=== PATIENT | male | born 1960 | race Caucasian/White ===

== ENCOUNTER 2017-11-21 13:02 | Outpatient (CLI) | payer OTHER ==
--- NOTE | 2017-11-21 17:46 | CT ---
NONCONTRAST CT LUMBAR SPINE: Date: 11-21-17 History: Polyneuropathy. Patient states that his legs give way and he collapses while standing. Sympt oms have been present for 6 months. History of prior lumbar surgery. FINDINGS: There is a dorsum column stimulator device noted in place with leads apparently entering at the T9-10 level as well as a lead entering at the T12-L1 level with leads extending from the T9-10 level to th e T12-L1 level. Post-surgical change related to posterior fusion are present involving the lower lumbar spine. There are bipedicular screws in the L3, L4, and L5 vertebral bodies transfixed by posterior rods. Intradisc al prosthesis is seen at the L3-4 level. There appears to be effusion of the T10 and T11 vertebral bodies with prominent bridging osteophytes anteriorly extending from the T9 to L1 vertebral bodies. The vertebral body heights are within normal limits. No fracture is seen on this examination. There i s trace retrolisthesis of L2 on L3. L1-2: There is vacuum phenomenon of intervertebral disc with loss of intervertebral disc height. Ther e is a disc osteophyte complex present with calcification of the posterior margin of the disc. There are facet hypertrophic changes at this level and ligamentous thickening. Findings result in moderate to severe narrowing of the central spinal canal. There is moderate left neural foraminal narrowing. T here is only mild encroachment on the right neural foramen at this level. L2-3: There is loss of intervertebral disc height with vacuum phenomenon in the intervertebral disc. There is disc osteophyte complex present with calcification of the posterior margin of the interverte bral disc. There are prominent facet hypertrophic changes and ligamentous thickening. There is severe narrowing of the central spinal canal. Calcification along the posterior disc margin may be related to calcification of the posterior longitudinal ligament. This finding is also similar to the L1-2 lev el and may again be related to calcification of the margins of the intervertebral disc or calcificati on of the posterior longitudinal ligament at these levels. There is mild bilateral neural foraminal n arrowing at this level. L3-4: Laminectomy defect is seen posteriorly. There is prominent artifact to this region due to not o nly the spinal hardware but the power pack for the dorsum column stimulator device, limiting evaluati on. However, there is no significant narrowing of the central spinal canal. The neural foramina also appear patent at this level. L4-5: Loss of intervertebral disc height. There is laminectomy defect seen posteriorly with prominent facet hypertrophic changes. There is only slight mass effect on the right posterolateral aspect of t he thecal sac due to the facet and degenerative changes. There is mild bilateral neural foraminal duong rowing due to bony encroachment. L5-S1: Laminectomy defect is seen posteriorly. There is a mild disc osteophyte complex with suggestio n of uncinate process hypertrophy on the right. This does encroach on and may potentially contact the traversing right S1 nerve root but does not displace and deform the nerve root. There is mild bilate ral neural foraminal narrowing. There is fusion of the lumbosacral junction. A punctate nonobstructing calculus is seen in the midportion left kidney with subcentimeter too small to characterize hypodense lesion seen in the medial aspect of the left kidney. Mild vascular calcifi cation is seen in the abdominal aorta and iliac arteries. IMPRESSION: 1. Post-surgical changes of the lumbar spine related to posterior fusion of L3 through S1 as describe d above. 2. Trace retrolisthesis of L2 on L3 with prominent degenerative changes at this level. There is promi nent facet hypertrophic changes with disc osteophyte complex and calcification along the posterior ma rgin of the intervertebral disc. Severe narrowing of the central spinal canal is present at this leve l with narrowing of the lateral recesses as well. There is moderate bilateral neural foraminal narrow ing. 3. Moderate narrowing of the central spinal canal at the L1-2 level, again related to disc osteophyte complex and calcification along the posterior margin of the intervertebral disc. There is moderate t o severe left and mild right sided neural foraminal narrowing. 4. No evidence of a fracture. 5. Fusion of the lower thoracic vertebral bodies. 6. Dorsal column stimulator device in place as described above. 7. Heterotopic ossification in the soft tissues posterior to the L4-5 level. 8. Atherosclerotic vascular calcification. 9. Non obstructing left renal calculus. POS: [facility]
== END 2017-11-21 13:03 | disposition home or self-care (01) ==
LOC: SCSCT 13:02
PROVIDERS: ATTEND Psychiatry & Neurology Neurology
DX: G63 Polyneuropathy in diseases classified elsewhere (principal); M47.896 Other spondylosis, lumbar region; M48.061 Spinal stenosis, lumbar region without neurogenic claudication; M99.83 Other biomechanical lesions of lumbar region; M43.16 Spondylolisthesis, lumbar region; M25.78 Osteophyte, vertebrae; I25.10 Atherosclerotic heart disease of native coronary artery without angina pectoris; N20.0 Calculus of kidney; Z98.1 Arthrodesis status; Z97.8 Presence of other specified devices
CPT/HCPCS: 72131

== ENCOUNTER 2017-11-21 16:00 | Outpatient (CLI) | payer OTHER | END 2017-11-21 16:01 | disposition home or self-care (01) | LOC: SLEEPLAB 16:00 | PROVIDERS: ATTEND Otolaryngology Plastic Surgery within the Head & Neck | DX: G47.33 Obstructive sleep apnea (adult) (pediatric) (principal); Z68.33 Body mass index [BMI] 33.0-33.9, adult | CPT/HCPCS: 95806 ==

== ENCOUNTER 2017-12-09 10:29 | Outpatient (CLI) | payer OTHER ==
--- NOTE | 2017-12-09 12:25 | CT ---
CT CERVICAL SPINE: INDICATIONS: Prior fusion. Neck pain. Broken screw at C6, according to history. TECHNIQUE: Multiple axial tomograms obtained through the cervical spine with multiplanar reconstruction. FINDINGS: Prior anterior fusion procedure noted. Anterior plate and screws seen in place, transfixing C4, C5, and C6. There are interbody implants and partial fusion at these levels. Prominent hypertrophic spo ndylitic changes are seen posteriorly. There is partial ossification of the posterior longitudinal l igament at C3-C4. There are prominent anterior osteophytes. The anterior plate and screws appear adequately positioned at C4 and C5. The anterior plate is adher ent at C6; however, the screws transfixing this plate at C6 show fractures in the C6 vertebra. The h rajiv of both these screws show slight retraction from the plate, more prominent on the right. At C2-C3, there is a small central disk protrusion, best appreciated on soft tissue windows, which im pinges upon and mildly flattens the anterior cord. The foramina are patent. At C3-C4, posterior hypertrophic changes are present with posterior spondylosis and partial ossificat ion of the posterior longitudinal ligament. There appears to be associated disk bulge and spondylosi s. These changes at C3-C4 compress the cord, resulting in moderate to severe cervical canal stenosis . There is right foraminal stenosis secondary to uncinate hypertrophy at this level. This ossified posterior longitudinal ligament continues along the posterior border of the C4 vertebra and compresses the cord. There are bony spondylitic changes at C4-C5, which compression the cord. There is severe compression of the cord at C4-C5, consistent with severe cervical canal stenosis. Th ere is severe left foraminal stenosis secondary to facet and uncinate hypertrophy and moderate right foraminal stenosis at C4-C5. Large osteophytes are seen at C5-C6, posteriorly, compressing the cord, resulting in moderate to tonya re cervical canal stenosis. Bilateral foraminal stenosis secondary to hypertrophic change. C6-C7: Mild disk bulge with spondylosis with mild hypertrophic change. No significant cervical tru l or foraminal stenosis. IMPRESSION: 1. There are prominent degenerative changes of the cervical spine with postoperative changes at C4, C5, and C6, as described above. 2. Prominent posterior bony spondylitic change, in conjunction with a partial ossification of the po sterior longitudinal ligament, resulting in moderate to severe cervical canal stenosis at C3-C4, C4-C 5, and C5-C6, with compression of the cord and foraminal stenosis at these levels, a described. POS: [facility]
== END 2017-12-09 10:30 | disposition home or self-care (01) ==
LOC: SCSCT 10:29
DX: M48.02 Spinal stenosis, cervical region (principal); M47.892 Other spondylosis, cervical region; M99.81 Other biomechanical lesions of cervical region; G95.20 Unspecified cord compression
CPT/HCPCS: 72125

== ENCOUNTER 2018-01-06 07:11 | Outpatient (CLI) | payer OTHER ==
[2018-01-06 08:24] VITALS: BP 121/89; TEMP 97.4
[2018-01-06 08:25] VITALS: BMI 33.1
--- NOTE | 2018-01-06 10:18 | RAD ---
LUMBAR SPINE 4 VIEWS: History Low back pain. Prior surgery. FINDINGS: There are 5 lumbar-type vertebrae. Bilateral pedicle screws and vertical fixators are in place at th e L3-4-5-S1 levels without perihardware lucency. Facet screws at the L4-5 level. Interbody fusion m aterial markers at the L2-3 level within the confines of the disk space. Other pedicles are intact. Prominent osteophytosis. Disk space narrowing and minimal degenerative retrolisthesis at the L1-2 a nd L2-3 levels without abnormal translational motion upon flexion or extension. Dorsal column stimul ator partially visualized. IMPRESSION: Postoperative and degenerative changes lumbar spine without acute osseous abnormalities demonstrated. POS: [facility]
--- NOTE | 2018-01-06 10:24 | RAD ---
CERVICAL SPINE SERIES: HISTORY: Neck pain. FINDINGS: AP, lateral, open mouth odontoid, flexion, and extension views of the cervical spine were obtained. Five views cervical spine demonstrate ACDF with fusion of the C4, 5, and 6 vertebrae. Anterior plate and screws are in place. One of the C6 screws appears to have fractured and has migrated anteriorly just posterior to the proximal esophagus. POS: [facility]
--- NOTE | 2018-01-06 11:44 | RAD ---
CERVICAL AND THORACIC AND LUMBAR SPINE MYELOGRAM: HISTORY: Previous fusion. Evaluate for spinal stenosis. COMPARISON: None. EXOPSURE: 97517.2 mGy*^m2. 7.1 minutes. FINDINGS: Successful lumbar myelogram. Total of 10 cc of Isovue contrast was administered intrathecally. The patient tolerated the procedure well. No immediate or postprocedure complications. Two view interceptor operator of the thoracic spine demonstrates extensive degenerative change with osteophyte forma tion. Dorsal column stimulator wires are noted and terminate in the distal thoracic spine. Cervical fusion hardware is noted. TECHNIQUE: Consent was obtained to perform a lumbar puncture for intrathecal contrast administration. The patie nt's back was evaluated. The L5-S1 level is deemed appropriate. The skin was prepped and draped in sterile fashion. 1% Lidocaine, buffered with sodium bicarbonate, was used for local anesthesia. Att empt was made to access the central canal at L5-S1, which was unsuccessful. Therefore, the patient w as re-prepped and draped in a sterile fashion. Additional Lidocaine was administered and attempt was made t the L2-L3 level, which was also unsuccessful. Therefore, the patient was prepped and draped in sterile fashion once again and additional Lidocaine was given. The final attempt was made at the L5-S1 level which was successful. Contrast was able to be administered into the thecal sac. There a re no immediate post procedure complications. IMPRESSION: Successful lumbar puncture for intrathecal contrast administration. POS: [facility]
[2018-01-06] MEDS ORDERED: Iopamidol-M 300 61% 15 ML VIAL ONE (12:13)
--- NOTE | 2018-01-06 12:20 | CT ---
CT CERVICAL SPINE: HISTORY: Status post myelogram. COMPARISON: 12/09/2017 TECHNIQUE: A post myelogram CT of the cervical spine is performed in the axial plane. Reformatted images are shoemaker bmitted for interpretation. FINDINGS: There is an anterior fusion plate with a transvertebral body screw at C4, C5, and C6. The right and left screw at C6 are retracted, and the left screw is fractured. Disk prostheses at C4-C5 and at C5- C6 are noted. Cervical spine vertebral body height is maintained. No fracture or malalignment. The visualized sof t tissue neck structures, the upper mediastinum, and the lung apices are unremarkable. C2-C3: Central disk bulge abuts the thecal sac. Mild central canal stenosis. The neural foramina a re patent. C3-C4: Broad-based disk osteophyte complex. There is mass effect upon the left hemicord. Moderate central canal stenosis. Mild left foraminal narrowing. C4-C5: Broad-based osteophyte ridge with severe central canal stenosis. Moderate right and severe l eft foraminal narrowing. C5-C6: Central disk osteophyte complex abuts the thecal sac. Mild to moderate central canal stenosi s. Moderate bilateral foraminal narrowing. C6-C7: No high-grade central canal stenosis or high-grade foraminal narrowing. C7-T1: No high-grade central canal stenosis or high-grade foraminal narrowing. IMPRESSION: 1. Fractured and retracted vertebral body screws at C6. 2. Significant central canal stenosis at multiple levels, as described above. There is severe centr al canal stenosis at C5-C6. Moderate central canal stenosis at C4-C5. POS: [facility]
--- NOTE | 2018-01-06 12:25 | CT ---
POST MYELOGRAM THORACIC SPINE CT: HISTORY: Thoracic spine pain. COMPARISON: None. FINDINGS: The visualized mediastinal structures are unremarkable. The visualized upper solid organs have appro priate attenuation. The visualized lung parenchyma demonstrate dependent atelectatic changes. The trachea and central br onchi are patent. The thoracic cord has an overall normal size. No evidence of cord expansion. The conus medullaris t erminates at the mid L1 to lower L1 level. There are two separate dorsal column stimulators, which have leads that terminate between T9 and T12. Throughout the thoracic spine, there is no evidence of high-grade foraminal stenosis. T6-T7: Central/right paracentral risk bulge. Mild central canal stenosis. T7-T8: Central/left paracentral disk bulge with deformity at the left aspect of the cord. Mild to m oderate central canal stenosis. T8-T9: Small right paracentral osteophyte with mild central canal stenosis. IMPRESSION: Degenerative changes of the mid thoracic spine, as above. There is central canal stenosis at T6-T7 a nd T7-T8 and, to a lesser extent, at T8-T9. POS: [facility]
--- NOTE | 2018-01-06 13:04 | CT ---
POST MYELOGRAM LUMBAR SPINE CT: COMPARISON: 11/21/17. HISTORY: Spinal stenosis. TECHNIQUE: Post myelogram lumbar spine CT is performed in the axial plane. Reformatted images are submitted for interpretation. FINDINGS: There are bilateral transpedicular screws at L3, L4, L5, and S1. There is associated posterior fusio n hardware. No evidence of perihardware lucency. Extensive bone graft material from L3 through S1. Disk prosthesis at L3-L4. Vacuum disk phenomenon at L1-L2 and L2-L3. Partially visualized dorsal c olumn stimulators. Symmetric attenuation of the psoas muscles. Visualized solid organs are unremarkable. Conus medullaris is at the inferior aspect of L1. Lumbar spine vertebral body height is maintained. No fracture or malalignment. Left hemilaminectomy defect at L5-S1. Posterior decompressive laminectomy at L4-L5, L3-L4. Partially visualized dorsal column stimulator is in the distal thoracic spine. T12-L1: No high-grade central canal stenosis or high-grade foraminal narrowing. L1-L2: Vacuum disk phenomenon. Broad-based disk-osteophyte complex, ligamentum flavum thickening, a nd facet hypertrophy result in mild central canal stenosis. Moderate bilateral neural foraminal narr owing. L2-L3: There is vacuum disk phenomenon. Broad-based disk bulge, ligamentum flavum thickening, and f acet hypertrophy result in severe central canal stenosis. There is 3 mm of retrolisthesis of L2 upon L3. Moderate bilateral neural foraminal narrowing. L3-L4: Posterior decompression. Disk prosthesis. No high-grade central canal stenosis. Bilaterall y, neural foramen are patent. L4-L5: Severe loss of disk space height. Posterior decompression. No high-grade central canal sten osis. Mild bilateral foraminal narrowing. L5-S1: Posterior decompression. No high-grade central canal stenosis. Neural foramina are mildly n arrowed. IMPRESSION: 1. Severe central canal stenosis at L2-L3. 2. Additional postoperative changes as described above. POS: [facility]
== END 2018-01-06 12:00 | disposition home or self-care (01) ==
LOC: RAD 07:11
PROVIDERS: ATTEND Surgery
DX: M51.16 Intervertebral disc disorders with radiculopathy, lumbar region (principal); M54.2 Cervicalgia; M48.061 Spinal stenosis, lumbar region without neurogenic claudication; M48.04 Spinal stenosis, thoracic region; M47.894 Other spondylosis, thoracic region; M48.02 Spinal stenosis, cervical region; Z98.1 Arthrodesis status
CPT/HCPCS: 62305; 72050; 72110; 72126; 72129; 72132

== ENCOUNTER 2018-06-07 14:25 | Outpatient (CLI) | payer OTHER ==
--- NOTE | 2018-06-07 16:39 | CT ---
CT CERVICAL SPINE NONCONTRAST: DATE: 06/07/18 HISTORY: 57-year-old male with cervical spondylosis. Status post surgery. Persistent cervicalgia. COMPARISON: 12/09/17. FINDINGS: Again noted are the anterior metallic plate and screws at C4, C5, and C6, and the small metallic karri ers for interbody grafts at the C4-5 and C5-6 disc spaces. The presence of streak artifact from the m etal makes it difficult to determine whether or not there are osseous bridges between the end plates at these levels. Again noted are the anterior bridging osteophytes protruding into the prevertebral s pace, flowing continuously from C6-7 through T2-3. It is presumed that such osteophytes have been sha mary ann off from the levels of ACDF mentioned above. This is consistent with DISH. Again noted are the ossified posterior longitudinal ligament, with interrupted segments, from C3-4 th rough upper C6, encroaching upon the anterior aspect of the spinal canal. Whereas previously there wa s extremely severe central spinal canal stenosis due to this OPLL, now the spinal canal has been wide corine by large, decompressive laminectomies, from C2-3 through C6-7. There are also new posterior eleme nt screws in the lateral masses, connected with vertical interlocking rods, from C3 down to T2. Align ment remains normal. The C2-3 and C3-4 disc spaces are maintained. There continues to be severe right neural foraminal stenosis at C3-4 due to asymmetrically moderate size right uncinate process osteoph ytes. IMPRESSION: 1. New, extensive decompressive laminectomy defects, relieving the previously severe central spinal canal stenosis, from C2-3 through C6-7. 2. New bilateral lateral mass posterior element screws from C4 through T2. 3. Ossified posterior longitudinal ligament. 4. Prior, old anterior cervical diskectomy and fusion at C4-5-6. 5. DISH (diffuse idiopathic skeletal hyperostosis). 6. Severe right neuroforaminal stenosis remains at C3-4. ABBE Meek POS: [facility]
--- NOTE | 2018-06-07 16:56 | CT ---
CT THORACIC SPINE WITHOUT CONTRAST: Date: 06/07/18 COMPARISON: Post myelogram thoracic spine CT dated 01/06/18. FINDINGS: Visualized mediastinal structures are unremarkable. Trachea and central bronchi are patent. Dependent atelectatic changes. Small bleb in the superior segment of the right lower lobe. Small calcified nod ule in the right lower lobe. No pleural effusion or pneumothorax. Visualized liver, kidneys, and spleen are unremarkable. Indeterminate hypodense mass emanating from t he proximal body of the pancreas, incompletely evaluated, measuring 2.1 cm. Redemonstration of incompletely evaluated fusion hardware along the anterior aspect of the distal cer vical spine. Interval placement of posterior fusion hardware in the distal cervical spine and upper t horacic spine. There are bilateral transpedicular screws at the T1 and T2 level. No perihardware luce ncy. Dorsal column stimulator is once again noted. Thoracic spine vertebral body height is maintained. There is no fracture. Extensive osteophyte format ion. Limited evaluation of the central spinal canal in terms of the distal cervical and upper thoracic spi ne secondary to beam attenuation hardware. Grossly, no high grade central canal stenosis or high grad e neural foraminal narrowing. IMPRESSION: 1. No evidence of fracture. 2. Anterior and posterior fusion changes in distal cervical and upper thoracic spine. 3. Indeterminate hypodense lesion in the pancreas, incompletely evaluated. Further evaluation with a pancreas protocol CT versus abdomen MRI is recommended. Results of study discussed with Dr. Payton Greenfield's nurse, on 06/07/18 at 1700 hours. CODE CR. POS: [facility]
== END 2018-06-07 14:26 | disposition home or self-care (01) ==
LOC: BICCT 14:25
DX: M47.12 Other spondylosis with myelopathy, cervical region (principal); M96.0 Pseudarthrosis after fusion or arthrodesis; M96.1 Postlaminectomy syndrome, not elsewhere classified; K86.89 Other specified diseases of pancreas; M48.02 Spinal stenosis, cervical region; M48.12 Ankylosing hyperostosis [Forestier], cervical region
CPT/HCPCS: 72125; 72128

== ENCOUNTER 2018-06-30 09:58 | Outpatient (CLI) | payer OTHER ==
[2018-06-30] MEDS ORDERED: Iopamidol 370 76% 100 ML VIAL ONE (12:43)
--- NOTE | 2018-06-30 13:28 | CT ---
CT OF ABDOMEN AND PELVIS PERFORMED WITH AND WITHOUT CONTRAST ENHANCEMENT: HISTORY: Pancreatic abnormality noted on recent CT examination within the body region of the pancreas. COMPARISON: CT of the thoracic spine of 06/07/2018 where this abnormality was noted. FINDINGS: The lung bases are clear of any infiltrative process. The liver shows a suggestion of some mild fatty change and is within normal limits of size. The sple en is normal in appearance. The pancreas shows a subtle slightly bilobed hypodense structure in the junction of the body and head region along the anterior aspect of the pancreas. It measures 2.2 cm in maximum dimension and has C T Hounsfield unit numbers precontrast at 5 and postcontrast at 12, therefore not definitely showing a ny enhancement. Gallbladder is slightly contracted. The left adrenal nodule on the precontrast images has Hounsfield unit numbers of 6. It does show kayce e enhancement on the more delayed images with numbers increasing to 28 on the postcontrast imaging. The groin measures 12 mm of size. There still could be a benign lesion such as adenoma given its low CT Hounsfield unit numbers on the precontrast study. The delayed washout imaging that would need to be performed for an adrenal lesion was not performed for this exam. Right and left kidneys are norm al in size. A small subcentimeter hypodensity involving the left kidney is statistically most likely a cyst. There is no significant periaortic or mesenteric adenopathy. CT OF PELVIS PERFORMED WITH AND WITHOUT CONTRAST ENHANCEMENT: The appendix region is unremarkable. There is no significant pelvic lymphadenopathy or mass. There is a suggestion of some very minimal sigmoid diverticulosis. Review of osseous structures shows arthritic changes and postop changes of the spine. There are also arthritic changes of both hips. IMPRESSION: 1. Slightly bilobed hypodense lesion involving the anterior aspect of the pancreas at the pancreatic head and body junction region. It has numbers that are most suggestive of a cyst. It could represe nt tiny pseudocysts. A small cystic neoplasm of the pancreas is not excluded and followup in 3-6 mon ths as the initial followup would be recommended for assessment. 2. Small 12 mm indeterminate left adrenal lesion. A followup exam may also be helpful in evaluating this. 3. A tiny punctate nonobstructing left renal calculus. 4. Fatty change of the liver. POS: [facility]
== END 2018-06-30 09:59 | disposition home or self-care (01) ==
LOC: BICCT 09:58
PROVIDERS: ATTEND Family Medicine
DX: K86.9 Disease of pancreas, unspecified (principal); K76.0 Fatty (change of) liver, not elsewhere classified; N20.0 Calculus of kidney; E27.9 Disorder of adrenal gland, unspecified
CPT/HCPCS: 74178

== ENCOUNTER 2020-03-07 08:04 | Outpatient (CLI) | payer OTHER ==
--- NOTE | 2020-03-07 10:30 | CT ---
CT ABDOMEN AND PELVIS WITH AND WITHOUT IV CONTRAST: Postcontrast images were obtained in arterial phase and portal venous phase. Pancreatic protocol was followed. INDICATION: Follow-up pancreatic mass. Comparison made to CT abdomen and pelvis dated 06/30/2018. That exam revealed a low density slightly bilobed cystic mass along the anterior margin of the pancreas near the junction of head and body of t he pancreas. FINDINGS: This slightly bilobed hypodense mass is again seen. It shows slight increase in size today. AP dimens ion in the axial plane on delayed venous phase measured approximately 1.9 cm today. It previously gail sured 1.5 to 1.6 cm. In the coronal plane, the mass is well seen and has dimensions today recorded at 1.9 cm craniocaudal x 2.5 cm width. Previous measurements were approximately 1.5 x 1.5 cm at the [facility] e location. Pancreas is otherwise unremarkable. Liver and spleen are unremarkable. There is a tiny nodule involving the medial limb of the left adrenal gland which was present previous ly and measures approximately 1.5 cm. This is a stable finding. The kidneys are unremarkable. Small and large bowel loops unremarkable. Aorta normal caliber. No adenopathy identified. Images through pelvis are unremarkable. Mild prostatic hypertrophy. Kidneys are unremarkable. There is a small cyst in the medial left renal cortex which is stable, quintin uring approximately 1.0 cm. Degenerative changes in the spine are again noted with postoperative changes in the spine. Pedicle sc rews are seen from L3 through S1. Degenerative disc changes are prominent at L1-2 and L2-3 with poste rior spurring and disc bulge resulting in central canal stenosis. Lung bases are clear. IMPRESSION: 1. The slightly bilobed cystic mass along the anterior margin of the pancreatic body has increased i n size since the exam of 06/30/2018 with dimensions noted above. 2. The small left adrenal nodule is stable. Recommend GI consultation and close follow-up. POS: [facility]
[2020-03-07] MEDS ORDERED: Iopamidol-370 76% 500 ML 1 ML ONE (15:09)
== END 2020-03-07 08:05 | disposition home or self-care (01) ==
LOC: BICCT 08:04
DX: K86.2 Cyst of pancreas (principal); E27.8 Other specified disorders of adrenal gland
CPT/HCPCS: 74178; 82565; Q9967